=== PATIENT | male | born 1940 | race Caucasian/White ===

== ENCOUNTER 2021-01-29 10:44 | Observation (INO) | payer MEDICARE ==
[2021-01-29 11:15] VITALS: BMI 21.7
[2021-01-29 11:31] VITALS: TEMP 97.8
[2021-01-29 12:22] LABS: Troponin I Less than 0.010 ng/mL (< 0.028)
[2021-01-29 15:23] LABS: Troponin I Less than 0.010 ng/mL (< 0.028)
[2021-01-29 15:32] VITALS: BP 109/59
[2021-01-29 17:50] LABS: SARS-CoV-2 PCR by NAA Not Detected (NotDetected)
== END 2021-01-29 16:02 | disposition home or self-care (01) ==
LOC: CSHTELE 10:44
PROVIDERS: ADMIT Family Medicine; ATTEND Internal Medicine
DX: R55 Syncope and collapse (principal); Z79.02 Long term (current) use of antithrombotics/antiplatelets; Z20.822 Contact with and (suspected) exposure to COVID-19
CPT/HCPCS: 84484; U0003; U0005; 36415; 87635